=== PATIENT | female | born 1995 | race Caucasian/White ===

== ENCOUNTER 2023-06-21 21:08 | Inpatient (IN) | payer BC, SELFPAY ==
[2023-06-21 21:23] VITALS: BP 125/84; PULSE 98
[2023-06-21 22:14] LABS: Hematocrit 36.4 % (36.0-48.0); Hemoglobin 12.2 g/dL (12.0-16.0); Mean Corpuscular HGB Conc 33.5 g/dL (29.9-35.2); Mean Corpuscular Hemoglobin 30.4 pg (26.7-34.0); Mean Corpuscular Volume 90.8 fL (81.0-99.0); Mean Platelet Volume 11.6 fL (9.5-13.5); Platelet Count 189 10^3/uL (150-450); Red Blood Count 4.01 10^6/uL (4.20-5.40); Red Cell Distribution Width 14.2 % (11.0-15.0); White Blood Count 14.5 10^3/uL (4.0-11.0)
[2023-06-21 22:17] LABS: Bilirubin Urine NEGATIVE (NEGATIVE); Blood Urine SMALL (NEGATIVE); Clarity Urine CLEAR (CLEAR); Color Urine YELLOW (YELLOW); Glucose Urine UA NEGATIVE (NEGATIVE); Ketones Urine TRACE mg/dL (NEGATIVE); Leukocyte Esterase Urine TRACE (NEGATIVE); Nitrite Urine NEGATIVE (NEGATIVE); Protein Urine NEGATIVE (NEG/TRACE); Specific Gravity Urine 1.025 (1.005-1.025); Urobilinogen Urine 0.2 EU/dL (0.2-1.0)
[2023-06-21 22:22] LABS: Urine Microscopic Indicated YES
[2023-06-21 22:25] LABS: Bacteria Urine NONE SEEN #/HPF (NONE SEEN); Cast Seen? NONE SEEN #/LPF (NONE SEEN); Crystals Seen? None Seen #/HPF (None Seen); Mucus Urine NONE SEEN (NONE SEEN); RBC Urine 0-2 #/HPF (0-2); Squamous Epithelial Cell Urine FEW #/LPF (NONE/RARE); WBC Urine 0-2 #/HPF (NONE SEEN)
[2023-06-21 22:30] LABS: Amphetamine Screen Urine NEGATIVE (NEGATIVE); Barbiturates Screen Urine NEGATIVE (NEGATIVE); Benzodiazepines Screen Urine NEGATIVE (NEGATIVE); Buprenorphine Screen Urine NEGATIVE (NEGATIVE); Cannabinoid Screen Urine NEGATIVE (NEGATIVE); Cocaine Screen Urine NEGATIVE (NEGATIVE); Methadone Screen Urine NEGATIVE (NEGATIVE); Methamphetamines Screen Urine NEGATIVE (NEGATIVE); Opiate Screen Urine NEGATIVE (NEGATIVE); Oxycodone Screen Urine NEGATIVE (NEGATIVE); Phencyclidine Screen Urine NEGATIVE (NEGATIVE); Tricyclic Antidepressant Urine NEGATIVE (NEGATIVE)
[2023-06-21 23:00] VITALS: BP 116/68; PULSE 83; TEMP 35.6; TEMP 35.8
[2023-06-21] MEDS: LACTATED RINGER'S SOLUTION 1,000 ML 999 ML IV (23:27)
[2023-06-22] VITALS (81 sets, daily range): BP systolic 99–192; BP diastolic 51–109; PULSE 86–136; RESP 15–33; TEMP 35.8–37.1; O2SAT 89–99
[2023-06-22] MEDS: LACTATED RINGER'S SOLUTION 1,000 ML 999 ML IV (00:28)
[2023-06-22] MEDS: LIDOCAINE HCL 2% PF 100 MG/5 ML VIAL INJ (00:36)
[2023-06-22] MEDS: ROPIVACAINE HCL/PF 400 MG/200 ML PREMIX 10 MG EPIDURAL (00:42)
--- NOTE | 2023-06-22 02:35 | PM.OBHP ---
OB - H&P: HPI History of Present Illness Chief complaint: @41 WEEKS, CONTRACTIONS : 2 Para: 0 Gestational age based on last menstrual period: 40.3 History of Present Dating criteria: LMP confirmed by 1st trimester US care: good care Ultrasounds: normal 1st trimester US and normal mid trimester US complications comment: none Medical complications OB: none Labs Blood type: A (+) positive Rubella: immune RPR/VDLR: nonreactive GBS status: negative HBsAG: negative Review of Systems ROS Status of ROS: 10 or more systems reviewed and unremarkable except as noted in history and below [facility] Medical History (Updated 06/22/23 @ 02:47 by ROCK DUMONT APRN, MARIBETH) Anemia ?D64.9 - Anemia, unspecified (ICD-10) Family History (Updated 06/21/23 @ 22:16 by Tay Matthews) Aunt Family history of cancer Grandfather Family history of cancer Father Family history of hypertension Clotting disorder Grandmother Family history of stroke Social History (Updated 06/21/23 @ 22:20 by Tay Matthews) Within the past year, how often did you have a drink containing alcohol: never Within the past year, how often did you have six or more drinks on one occasion: never Score interpretation: A score less than 3 is consistent with normal alcohol consumption. Smoking status: Never smoker Non-prescribed substance use: denies use Highest level of school completed/degree received: Bachelor's degree Are you now , , , , never or living with a partner: In a typical week, how many times do you talk on the telephone with family, friends, or neighbors: 3 or more times per week How often do you get together with friends or relatives: 3 or more times per week How often do you attend confucianism or evangelical services: 4 or more times per year Do you belong to any clubs or organizations such as confucianism groups unions, fraternal or athletic groups, or school groups: no Total score: 3 Score interpretation: A score of greater than or equal to 2 indicates the lowest level of social isolation. Little interest or pleasure in doing things: not at all Feeling down, depressed, or hopeless: not at all Feel stressed/tense/nervous/anxious/difficulty sleeping: not at all Do you think of yourself as: straight/heterosexual Gender Identity: female Meds Home Medications and Allergies Home Medications Medication Instructions Recorded Confirmed Type ferrous sulfate 325 mg (65 mg mg PO 06/21/23 History iron) tablet,delayed release Allergies Allergy/AdvReac Type Severity Reaction Status Date / Time No Known Drug Allergies Allergy Verified 06/21/23 22:49 Exam Constitutional Vital Signs, click to edit/add: Last Vital Signs Temp 96.4 F L 06/22/23 01:44 Pulse 93 H 06/22/23 02:34 BP 107/57 06/22/23 02:34 Common normals: no apparent distress and oriented x3 General appearance: cooperative and comfortable Orientation/consciousness: Yes awake, Yes oriented to person, Yes oriented to place and Yes oriented to time HENMT Common normals: normocephalic Eye Common normals: EOMs intact bilaterally Neck & C-Spine Common normals: full ROM and no lymphadenopathy General: normal visual inspection Lymph Lymphatic: no lymphadenopathy noted Chest Common normals: inspection of chest normal Respiratory Common normals: normal respiratory effort Cardio Common normals: regular rate and regular rhythm Rate: regular rate Rhythm: regular rhythm GI Common normals: Normal to inspection, nondistended, normoactive bowel sounds present Inspection: normal to inspection Auscultation: normoactive bowel sounds Palpation: firm (gravid uterus ) Percussion: normal to percussion Common normals: external appearance normal Bladder/kidney exam: catheter in place Extremity Common normals: normal to inspection and full ROM Neuro Common normals: oriented x3 and moves all extremities Sensorium/orientation: awake, alert, oriented to person, oriented to place and oriented to time Speech: speech normal Psych Common normals: mental status grossly normal, thought process normal, cooperative, affect normal and speech normal Appearance: grossly normal and well kempt Attitude: calm Activity/motor behavior: appropriate eye contact Speech: normal speech Thought process: normal thought process Thought content: normal thought content Results Labs Labs: Short CBC 06/21/23 Range/Units 21:56 WBC 14.5 H (4.0-11.0) 10^3/uL Hgb 12.2 (12.0-16.0) g/dL Hct 36.4 (36.0-48.0) % Plt Count 189 (150-450) 10^3/uL Urine 06/21/23 Range/Units 21:15 Urine Color Yellow (YELLOW) Urine Clarity Clear (CLEAR) Urine pH 6.0 (5.0-9.0) Ur Specific [place] 1.025 (1.005-1.025) Urine Protein Negative (NEG/TRACE) mg/dL Urine Glucose (UA) Negative (NEGATIVE) mg/dL OB - A/P Assessment and Plan (1) Term : Plan admit to labor and delivery, routine labor orders Additional Plan Induction method: none (patient did want elective induction of labor , spontaneous labor onset )
--- NOTE | 2023-06-22 03:34 | PM.EN ---
Event Note Event Note: to room to assess patient after anesthesia leaves room. SVE /0 with bulging bag
--- NOTE | 2023-06-22 04:43 | PM.EN ---
Event Note Event Note: patient feeling increase in rectal pressure and states I feel like I could have a bowel movement. SVE thick anterior lip/100/0 encouraged position change to reduce cervical lip. Category 1 EFM tracing
[2023-06-22] MEDS: LACTATED RINGER'S SOLUTION 1,000 ML 125 ML IV ×2 (05:09→08:44)
[2023-06-22] MEDS: OXYTOCIN/0.9 % SODIUM CHLORIDE 10 UNITS/500 ML PLAST..BAG 6 UNIT IV (05:50)
--- NOTE | 2023-06-22 08:15 | PM.EN ---
Event Note Event Note: 0650 Dr Hanley called per this CNM and updated with report. He recommends patient continue to push, and vacuum is not ideal with the station, possible LGA and expulsatory effort. 0700 patient continues to push without expulsatory effort. Patient is tearful and states I'm so tired, I can't do this anymore, and I'm done. patient station is the same, and I do not feel good effort when she pushes. Head descends to +2 with pushing and then retracts back to +1 when contraction is done. Patient remains tearful. 751 discussion with patient and her regarding primary section and explanation of risk of vacuum at this time. Unknown position, possible LGA, risk of shoulder dystocia discussed. After all questions answered patient does agree to primary low transverse section. discussion with patient regarding pushing and effort. maternal exhaustion. Patient does not want to push any longer. head is retracting when pushing is complete. 0755 Category B primary section called. Dr Hanley notified and team called her unit RN.
[2023-06-22] MEDS: CITRIC ACID/SODIUM CITRATE 30 ML SOLUTION ORACIT SHOHL'S SOLN PO (08:44)
[2023-06-22] MEDS: FAMOTIDINE/PF 20 MG/2 ML VIAL IV (08:45)
[2023-06-22] MEDS: CEFAZOLIN SODIUM/DEXTROSE,ISO 1 GM/50 ML IV.SOLN IV ×2 (08:45→16:55)
--- NOTE | 2023-06-22 09:36 | W.PC.ACHO ---
Registration Status: ADM IN Primary Language: Preferred Language: Greenlandic Active Medications Generic Name Dose Route Start Last Admin Trade Name Charo PRN Reason Stop Dose Admin Carboprost Tromethamine 250 mcg 06/21/23 21:54 Carboprost Tromethamine 250 Mcg/Ml 1 Ml Vial IM 06/23/23 21:54 Q15M PRN Bleeding Diphenhydramine HCl 25 mg 06/21/23 23:21 Diphenhydramine Hcl 50 Mg/Ml (1ml) Vial IV 06/22/23 23:21 Q6H PRN Itching Ephedrine Sulfate 5 mg 06/21/23 23:21 Ephedrine Sulfate 50 Mg/Ml Vial IV 06/22/23 23:21 Q5M PRN Blood Pressure - Low Fentanyl Citrate 100 mcg 06/21/23 23:21 Fentanyl Citrate/Pf 100 Mcg/2 Ml Vial EPIDURAL ONCE PRN epidural Fentanyl Citrate 100 mcg 06/21/23 23:21 Fentanyl Citrate/Pf 100 Mcg/2 Ml Vial EPIDURAL ONCE PRN epidural Lactated Ringer's 1,000 mls @ 125 mls/hr 06/21/23 22:00 06/22/23 08:44 Lactated Ringers IV 125 mls/hr .Q8H NICCI Administration Ropivacaine/Sodium Chloride 400 mg in 200 mls @ 6 mls/hr 06/21/23 23:30 06/22/23 04:34 Naropin 0.2% 400 Mg/200 Ml Bag EPIDURAL 12 mls/hr Q24H NICCI Infusion Oxytocin/Sodium Chloride 10 units in 500 mls @ 6 mls/hr 06/22/23 05:45 06/22/23 07:45 Pitocin 10 Unit/500 Ml-Ns IV Infused CONT NICCI Infusion Protocol 2 MILLIUNIT/MIN Lactated Ringer's 1,000 mls @ 1,000 mls/hr 06/22/23 08:15 Lactated Ringers IV 06/22/23 10:14 .Q1H NICCI Lidocaine 5 ml 06/21/23 21:54 Lidocaine Viscous 2% 15 Ml Solution TOPICAL ONCE PRN Pain Lidocaine 1 ml 06/21/23 21:54 Lidocaine Hcl 1% 200 Mg/20 Ml Mdv INJ ONCE PRN Pain Lidocaine 5 ml 06/21/23 23:21 06/22/23 00:36 Lidocaine Hcl 2% Pf 100 Mg/5 Ml Vial INJ 06/22/23 23:21 5 ml Q1H PRN Administration epidural Methylergonovine Maleate 0.2 mg 06/21/23 21:54 Methylergonovine Maleate 0.2 Mg/Ml Ampule IM 06/23/23 21:54 ONCE PRN Uterine Contractility/Contract Methylergonovine Maleate 0.2 mg 06/21/23 21:54 Methylergonovine Maleate 0.2 Mg Tablet PO 06/23/23 21:54 Q4H PRN Uterine Contractility/Contract Misoprostol 600 mcg 06/21/23 21:54 Misoprostol 100 Mcg Tablet PO 06/23/23 21:54 ONCE PRN Uterine Bleeding Misoprostol 800 mcg 06/21/23 21:54 Misoprostol 100 Mcg Tablet SL 06/23/23 21:54 ONCE PRN Uterine Bleeding Misoprostol 1,000 mcg 06/21/23 21:54 Misoprostol 100 Mcg Tablet MA 06/23/23 21:54 ONCE PRN Uterine Bleeding Naloxone HCl 0.4 mg 06/21/23 23:21 Naloxone Hcl 0.4 Mg/Ml Vial IV 06/22/23 23:21 ONCE PRN respiratory depression Ondansetron HCl 4 mg 06/21/23 21:54 Ondansetron Pf 4 Mg/2 Ml Vial IV Q6H PRN Nausea And Vomiting Ondansetron HCl 4 mg 06/21/23 21:54 Ondansetron 4 Mg Rapdis Tablet SL Q6H PRN Nausea And Vomiting Oxytocin 10 unit 06/21/23 21:54 Oxytocin 10 Unit/Ml Vial IM 06/23/23 21:54 ONCE PRN Bleeding Diet Category Date Time Status NPO Diet Diet 06/22/23 08:05 Active IV Insertion/Site Date of IV Line Insertion [20g 06/21/23 left Wrist] IV Insertion Time [20g left 21:56 Wrist] Neurology Patient orientation (short person,place,time,situation list)
--- NOTE | 2023-06-22 09:55 | P.ON_ITS ---
Brief Operative Note Date of procedure: 06/22/23 Pre-op diagnosis: iup at 40+wks, active labor, failure to descend, maternal ex haustion Post-op diagnosis: same as pre-op Procedure: NAME OF PROCEDURE: [ section ] PROCEDURE: Patient was taken back to the Operating Room where she was given a spinal anesthesia with Duramorph without difficulty. She was prepped and draped in the normal sterile fashion. A Pfannenstiel skin incision was then made 2 cm above the symphysis pubis and carried down to underlying rectus fascia using a Bovie. The fascia was incised in the midline and extended laterally using Gastelum scissors. Two Anisha clamps were placed on the superior aspect of the fascia and dissected off the underlying rectus muscles. The same was performed on the inferior aspect as well. The muscles were then in the midline. Peritoneum was identified and entered bluntly. The peritoneum was then extended superiorly and inferiorly with good visualization of the bladder. The bladder blade was inserted. A low transverse incision was made on the patient's uterus and extended laterally digitally. The infant was then delivered atraumatically after the bladder blade was removed in the cephalic position. The cord was clamped and cut. Cord blood was obtained. The infant was handed off to awaiting team. The patient's placenta was spontaneously delivered. The uterus was then exteriorized. The uterus was cleared of all clots and debris. The bladder blade was reinserted. The patient's uterine incision was closed using #0 Vicryl in a running lock fashion. Excellent hemostasis was assured. The uterus was then returned to the patient's abdomen. The patient's abdomen was copiously irrigated using warm saline. Peritoneal gutters were cleared of all clots and debris. Again excellent hemostasis was assured. The patient's peritoneum was closed using 3-0 Vicryl in a running fashion. The patient's fascia was closed using #0 Vicryl in a running fashion. The patient's skin was closed using 4-0 Vicryl subcuticularly. The patient tolerated the procedure well. Sponge, lap, and needle counts were correct x2. The patient was taken to the Recovery Room in stable condition. Anesthesia: spinal Surgeon: Louis Hanley Quality Project Manager: ROCK DUMONT Estimated blood loss (mL): 575 Pathology: none sent Condition: stable Disposition: PACU
--- NOTE | 2023-06-22 09:56 | PM.OBPRCCS ---
Procedure Pre-op/Post-op diagnoses: Pre-Op/Post-Op Diagnoses Operation Date: 06/22/23 08:45 <No data on this case meets the specified criteria> Procedure: Procedures Operation Date: 06/22/23 08:45 Actual Procedure Side Surgeon p Not Applicable Louis Hanley DO Clean Up Worker: ROCK DUMONT Estimated blood loss (mL): 575 Disposition: floor Anesthesia type: Spinal
[2023-06-22] MEDS: LACTATED RINGER'S SOLUTION 1,000 ML 50 ML IV (09:59)
--- NOTE | 2023-06-22 10:21 | P.EN_ITS ---
Event Note Event Note: Corporate Compliance Officer Note: I first assisted Dr Hanley with primary low transverse section of viable baby boy. I assisted as directed by physician. I independently closed the SQ layer with 3-0 vicryl x4 sutures. I then independently closed the skin incision with 4-0 vicryl on a Dat Needle without difficulty. Hemostasis noted at completion. Patient tolerated procedure well.
[2023-06-22] MEDS: OXYTOCIN/0.9 % SODIUM CHLORIDE 20 UNITS/1,000 ML PLAST..BAG 125 UNIT IV ×2 (10:25)
[2023-06-22] MEDS: ACETAMINOPHEN 500 MG TABLET 1000 MG PO ×2 (15:00→21:01)
[2023-06-22] MEDS: GLYCERIN/WITCH HAZEL PADS 1 PAD TOPICAL (16:34)
[2023-06-22] MEDS: BENZOCAINE/MENTHOL 85 GRAM SPRAY BOTTLE 1 APPLIC TOPICAL (16:34)
[2023-06-22] MEDS: KETOROLAC TROMETHAMINE 30 MG/ML VIAL IVP (18:16)
[2023-06-22] MEDS: ENOXAPARIN SODIUM 40 MG/0.4 ML SYRINGE SUBQ (21:03)
[2023-06-23] MEDS: KETOROLAC TROMETHAMINE 30 MG/ML VIAL IVP ×3 (01:49→17:06)
[2023-06-23] MEDS: ACETAMINOPHEN 500 MG TABLET 1000 MG PO ×3 (03:45→22:05)
[2023-06-23 04:50] VITALS: BP 113/71
[2023-06-23 06:10] LABS: Basophils Absolute Auto 0.1 10^3/uL (0.0-0.1); Basophils Percent Auto 0.4 % (0.2-2.0); Eosinophils Absolute Auto 0.1 10^3/uL (0.0-0.7); Eosinophils Percent Auto 0.3 % (0.9-7.0); Hemoglobin 9.6 g/dL (12.0-16.0); Immature Granulocytes Abs Auto 0.08 10^3/uL (0.00-0.03); Immature Granulocytes Pct Auto 0.4 % (0.0-0.5); Mean Corpuscular HGB Conc 34.3 g/dL (29.9-35.2); Mean Corpuscular Hemoglobin 31.3 pg (26.7-34.0); Mean Corpuscular Volume 91.2 fL (81.0-99.0); Mean Platelet Volume 11.3 fL (9.5-13.5); Monocytes Absolute Auto 1.4 10^3/uL (0.3-0.8); Monocytes Percent Auto 7.2 % (1.7-12.0); Neutrophils Absolute Auto 16.2 10^3/uL (1.4-6.5); Neutrophils Percent Auto 81.7 % (43.0-75.0); Platelet Count 159 10^3/uL (150-450); Red Blood Count 3.07 10^6/uL (4.20-5.40); White Blood Count 19.8 10^3/uL (4.0-11.0)
--- NOTE | 2023-06-23 07:35 | W.PC.ACHO ---
Registration Status: ADM IN Primary Language: Preferred Language: Maltese Active Medications Generic Name Dose Route Start Last Admin Trade Name Freq PRN Reason Stop Dose Admin Acetaminophen 1,000 mg 06/22/23 15:40 06/23/23 03:45 Acetaminophen 500 Mg Tablet PO 1,000 mg Q6H PRN Administration Pain Al Hydroxide/Mg Hydroxide 2,400 mg 06/22/23 10:29 Magnesium Hydroxide 2,400 Mg/10 Ml Oral.Susp PO Q6H PRN Dyspepsia Benzocaine/Menthol 1 applic 06/22/23 16:08 06/22/23 16:34 Benzocaine/Menthol 85 Gram [place] Bottle TOPICAL 1 applic Q2H PRN Administration Pain Carboprost Tromethamine 250 mcg 06/21/23 21:54 Carboprost Tromethamine 250 Mcg/Ml 1 Ml Vial IM 06/23/23 10:00 Q15M PRN Bleeding Diphenhydramine HCl 25 mg 06/22/23 10:34 Diphenhydramine Hcl 50 Mg/Ml (1ml) Vial IV 06/23/23 10:35 Q6H PRN Itching Diphtheria/Pertussis/Tetanus Vacc 0.5 ml 06/24/23 09:00 Adacel Diph,Pertuss(Acell),Tet Vac/Pf 0.5 Ml Adult Syringe IM 06/24/23 09:01 .ONCE ONE Docusate Sodium 100 mg 06/23/23 09:00 Docusate Sodium 100 Mg Capsule PO BID NICCI Enoxaparin Sodium 40 mg 06/22/23 21:30 06/22/23 21:03 Enoxaparin Sodium 40 Mg/0.4 Ml Syringe SUBQ 40 mg Q24H NICCI Administration Lactated Ringer's 1,000 mls @ 125 mls/hr 06/22/23 10:30 Lactated Ringers IV .Q8H NICCI Ketorolac Tromethamine 30 mg 06/22/23 18:00 06/23/23 01:49 Ketorolac Tromethamine 30 Mg/Ml Vial IVP 06/24/23 18:01 30 mg Q8H NICCI Administration Measles/Mumps/Rubella Vaccine Live 0.5 ml 06/24/23 09:00 Measles,Mumps,Rubella Vacc/Pf 0.5 Ml Vial SQ 06/24/23 09:01 .ONCE ONE Methylergonovine Maleate 0.2 mg 06/21/23 21:54 Methylergonovine Maleate 0.2 Mg/Ml Ampule IM 06/23/23 10:00 ONCE PRN Uterine Contractility/Contract Methylergonovine Maleate 0.2 mg 06/21/23 21:54 Methylergonovine Maleate 0.2 Mg Tablet PO 06/23/23 10:00 Q4H PRN Uterine Contractility/Contract Misoprostol 600 mcg 06/21/23 21:54 Misoprostol 100 Mcg Tablet PO 06/23/23 10:00 ONCE PRN Uterine Bleeding Misoprostol 800 mcg 06/21/23 21:54 Misoprostol 100 Mcg Tablet SL 06/23/23 10:00 ONCE PRN Uterine Bleeding Misoprostol 1,000 mcg 06/21/23 21:54 Misoprostol 100 Mcg Tablet HI 06/23/23 10:00 ONCE PRN Uterine Bleeding Ondansetron HCl 4 mg 06/21/23 21:54 Ondansetron Pf 4 Mg/2 Ml Vial IV Q6H PRN Nausea And Vomiting Ondansetron HCl 4 mg 06/21/23 21:54 Ondansetron 4 Mg Rapdis Tablet SL Q6H PRN Nausea And Vomiting Oxycodone/Acetaminophen 1 tab 06/22/23 10:29 Oxycodone Hcl/Acetaminophen 5mg/325mg PO Q4H PRN Pain Scale 4-6 Oxycodone/Acetaminophen 2 tab 06/22/23 10:29 Oxycodone Hcl/Acetaminophen 5mg/325mg PO Q4H PRN Pain Scale 7-10 Senna 17.2 mg 06/22/23 20:00 Sennosides 8.6 Mg Tablet PO QHS PRN Constipation Simethicone 80 mg 06/22/23 10:29 Simethicone 80 Mg Tab.Chew PO QID PRN Abdominal Distention Witch Meeta/Glycerin 1 pad 06/22/23 16:08 06/22/23 16:34 Glycerin/Witch Meeta Pads TOPICAL 1 pad Q2H PRN Administration Pain Diet Category Date Time Status Regular Consistency Diet Diet 06/22/23 10:30 Active Respiratory Lung sounds [Throughout] clear Lung sounds [Throughout] clear Lung sounds [Throughout] clear Lung sounds [Throughout] clear Lung sounds [Throughout] clear Lung sounds [Throughout] clear Pulse Oximetry 94 Pulse Oximetry 94 Pulse Oximetry 94 Pulse Oximetry 94 Pulse Oximetry 94 Pulse Oximetry 94 Pulse Oximetry 94 Pulse Oximetry 94 Pulse Oximetry 94 Pulse Oximetry 93 Pulse Oximetry 89 Pulse Oximetry 90 Pulse Oximetry 92 Pulse Oximetry 96 Pulse Oximetry 98 Pulse Oximetry 99 Pulse Oximetry 98 Pulse Oximetry 98 Pulse Oximetry 98 Pulse Oximetry 98 Pulse Oximetry 98 Pulse Oximetry 98 Pulse Oximetry 97 Pulse Oximetry 96 Pulse Oximetry 99 Oxygen Delivery Method Room Air Oxygen Delivery Method Room Air Oxygen Delivery Method Room Air Oxygen Delivery Method Room Air Oxygen Delivery Method Room Air Oxygen Delivery Method Room Air Oxygen Delivery Method Room Air Oxygen Delivery Method Room Air Oxygen Delivery Method Room Air Oxygen Delivery Method Room Air Oxygen Delivery Method Room Air Oxygen Delivery Method Room Air Oxygen Delivery Method Room Air Oxygen Delivery Method Room Air Oxygen Delivery Method Room Air Bowels Bowel Pattern No Bowel Movement Bowel Pattern No Bowel Movement Bowel Pattern No Bowel Movement Bowel Pattern No Bowel Movement Bowel Pattern No Bowel Movement Bowel Pattern No Bowel Movement Bowel Pattern No Bowel Movement Bowel Pattern No Bowel Movement Bowel Pattern No Bowel Movement
[2023-06-23 08:42] VITALS: BP 123/74; RESP 16
[2023-06-23] MEDS: DOCUSATE SODIUM 100 MG CAPSULE PO ×2 (08:42→22:05)
[2023-06-23 16:07] VITALS: O2SAT 100
[2023-06-23 16:08] VITALS: BP 125/75; O2SAT 96
[2023-06-23 16:16] VITALS: BP 125/75; PULSE 107; RESP 16; TEMP 36.7; O2SAT 96
[2023-06-23 17:00] VITALS: RESP 16
--- NOTE | 2023-06-23 20:33 | PM.OBPN ---
OB - PN: Subj Subjective Patient comments: no complaints and pain well controlled [place] status: doing well Exam Constitutional Vital Signs, click to edit/add: Last Vital Signs Temp 98.0 F 06/23/23 16:16 Pulse 107 H 06/23/23 16:16 Resp 16 06/23/23 17:00 BP 125/75 06/23/23 16:16 Pulse Ox 96 06/23/23 16:16 O2 Del Method Room Air 06/23/23 17:00 Documenting provider has reviewed patient's vital signs: yes Common normals: no apparent distress Respiratory Common normals: normal respiratory effort and clear to auscultation bilaterally Cardio Common normals: regular rate and regular rhythm GI Common normals: Normal to inspection, nondistended, normoactive bowel sounds present Extremity Common normals: no calf tenderness Results Labs Labs: Short CBC 06/23/23 Range/Units 06:03 WBC 19.8 H (4.0-11.0) 10^3/uL Hgb 9.6 L (12.0-16.0) g/dL Hct 28.0 L (36.0-48.0) % Plt Count 159 (150-450) 10^3/uL Urinary Catheter Management Urinary Catheter Management Urethral: Cath placed during this visit: no OB - PN: A/P Assessment and Plan (1) Term : Plan - day: 1 Plan: routine postop care Time Spent with Patient Time: Total time spent is greater than 50% in coordination of care (as documented) at patient's floor/unit and/or counseling patient: Total time spent with greater than 50% in coordination of care (as documented) at patient's floor/unit and/or counseling patient: less than 15 minutes
[2023-06-23] MEDS: ENOXAPARIN SODIUM 40 MG/0.4 ML SYRINGE SUBQ (22:05)
[2023-06-24 00:35] VITALS: BP 120/72; RESP 18; TEMP 36.6
[2023-06-24] MEDS: IBUPROFEN 400 MG TABLET 800 MG PO (03:26)
[2023-06-24] MEDS: ACETAMINOPHEN 500 MG TABLET 1000 MG PO ×2 (06:30→13:30)
--- NOTE | 2023-06-24 07:13 | W.PC.ACHO ---
Registration Status: ADM IN Primary Language: Preferred Language: Belarusian Active Medications Generic Name Dose Route Start Last Admin Trade Name Freq PRN Reason Stop Dose Admin Acetaminophen 1,000 mg 06/22/23 15:40 06/24/23 06:30 Acetaminophen 500 Mg Tablet PO 1,000 mg Q6H PRN Administration Pain Al Hydroxide/Mg Hydroxide 2,400 mg 06/22/23 10:29 Magnesium Hydroxide 2,400 Mg/10 Ml Oral.Susp PO Q6H PRN Dyspepsia Benzocaine/Menthol 1 applic 06/22/23 16:08 06/22/23 16:34 Benzocaine/Menthol 85 Gram [place] Bottle TOPICAL 1 applic Q2H PRN Administration Pain Diphtheria/Pertussis/Tetanus Vacc 0.5 ml 06/24/23 09:00 Adacel Diph,Pertuss(Acell),Tet Vac/Pf 0.5 Ml Adult Syringe IM 06/24/23 09:01 .ONCE ONE Docusate Sodium 100 mg 06/23/23 09:00 06/23/23 22:05 Docusate Sodium 100 Mg Capsule PO 100 mg BID NICCI Administration Enoxaparin Sodium 40 mg 06/22/23 21:30 06/23/23 22:05 Enoxaparin Sodium 40 Mg/0.4 Ml Syringe SUBQ 40 mg Q24H NICCI Administration Lactated Ringer's 1,000 mls @ 125 mls/hr 06/22/23 10:30 Lactated Ringers IV .Q8H NICCI Ibuprofen 800 mg 06/24/23 02:56 06/24/23 03:26 Ibuprofen 400 Mg Tablet PO 800 mg Q8H PRN Administration Pain Scale 1-3 Ketorolac Tromethamine 30 mg 06/22/23 18:00 06/24/23 02:55 Ketorolac Tromethamine 30 Mg/Ml Vial IVP 06/24/23 18:01 Not Given Q8H NICCI Measles/Mumps/Rubella Vaccine Live 0.5 ml 06/24/23 09:00 Measles,Mumps,Rubella Vacc/Pf 0.5 Ml Vial SQ 06/24/23 09:01 .ONCE ONE Ondansetron HCl 4 mg 06/21/23 21:54 Ondansetron Pf 4 Mg/2 Ml Vial IV Q6H PRN Nausea And Vomiting Ondansetron HCl 4 mg 06/21/23 21:54 Ondansetron 4 Mg Rapdis Tablet SL Q6H PRN Nausea And Vomiting Oxycodone/Acetaminophen 1 tab 06/22/23 10:29 Oxycodone Hcl/Acetaminophen 5mg/325mg PO Q4H PRN Pain Scale 4-6 Oxycodone/Acetaminophen 2 tab 06/22/23 10:29 Oxycodone Hcl/Acetaminophen 5mg/325mg PO Q4H PRN Pain Scale 7-10 Senna 17.2 mg 06/22/23 20:00 Sennosides 8.6 Mg Tablet PO QHS PRN Constipation Simethicone 80 mg 06/22/23 10:29 Simethicone 80 Mg Tab.Chew PO QID PRN Abdominal Distention Witch Meeta/Glycerin 1 pad 06/22/23 16:08 06/22/23 16:34 Glycerin/Witch Meeta Pads TOPICAL 1 pad Q2H PRN Administration Pain Respiratory Pulse Oximetry 96 Pulse Oximetry 96 Pulse Oximetry 100 Oxygen Delivery Method Room Air Oxygen Delivery Method Room Air Oxygen Delivery Method Room Air Cardiology Heart Sounds Strong,Regular Bowels Bowel Pattern No Bowel Movement Renal Bladder Pattern Continent
--- NOTE | 2023-06-24 07:54 | PM.OBPN ---
OB - PN: Subj Subjective Patient comments: no complaints, tolerating diet and flatus present status: doing well and well feeding status: exclusively Exam Constitutional Vital Signs, click to edit/add: Last Vital Signs Temp 97.8 F 06/24/23 00:35 Pulse 107 H 06/23/23 16:16 Resp 18 06/24/23 00:35 BP 120/72 06/24/23 00:35 Pulse Ox 96 06/23/23 16:16 O2 Del Method Room Air 06/24/23 00:35 Common normals: no apparent distress HENMT Common normals: normocephalic Eye Common normals: EOMs intact bilaterally General eye: normal appearance of both eyes Neck & C-Spine Common normals: full ROM General: normal visual inspection Lymph Lymphatic: no lymphadenopathy noted Chest Common normals: inspection of chest normal Respiratory Common normals: normal respiratory effort, no retractions, no use of accessory muscles and clear to auscultation bilaterally Cardio Common normals: no JVD, regular rate and regular rhythm Rate: regular rate Rhythm: regular rhythm GI Common normals: Normal to inspection, nondistended, normoactive bowel sounds present Palpation: soft Common normals: no CVA tenderness Back & Pelvis Common normals: no CVA tenderness Extremity Common normals: normal to inspection and full ROM Neuro Common normals: oriented x3 Sensorium/orientation: awake, alert, oriented to person, oriented to place and oriented to time Psych Common normals: mental status grossly normal Urinary Catheter Management Urinary Catheter Management Urethral: Cath placed during this visit: no OB - PN: A/P Assessment and Plan (1) Term : Plan - day: 2 Plan: discharge home Time Spent with Patient Time: Total time spent is greater than 50% in coordination of care (as documented) at patient's floor/unit and/or counseling patient: Total time spent with greater than 50% in coordination of care (as documented) at patient's floor/unit and/or counseling patient: less than 15 minutes
[2023-06-24] MEDS: DOCUSATE SODIUM 100 MG CAPSULE PO (08:11)
[2023-06-24 08:17] VITALS: BP 120/71; PULSE 91; RESP 16; TEMP 36.3
--- NOTE | 2023-06-24 13:01 | W.PC.ACHO ---
Registration Status: ADM IN Primary Language: Preferred Language: Divehi Active Medications Generic Name Dose Route Start Last Admin Trade Name Freq PRN Reason Stop Dose Admin Acetaminophen 1,000 mg 06/22/23 15:40 06/24/23 06:30 Acetaminophen 500 Mg Tablet PO 1,000 mg Q6H PRN Administration Pain Al Hydroxide/Mg Hydroxide 2,400 mg 06/22/23 10:29 Magnesium Hydroxide 2,400 Mg/10 Ml Oral.Susp PO Q6H PRN Dyspepsia Benzocaine/Menthol 1 applic 06/22/23 16:08 06/22/23 16:34 Benzocaine/Menthol 85 Gram [place] Bottle TOPICAL 1 applic Q2H PRN Administration Pain Docusate Sodium 100 mg 06/23/23 09:00 06/24/23 08:11 Docusate Sodium 100 Mg Capsule PO 100 mg BID NICCI Administration Enoxaparin Sodium 40 mg 06/22/23 21:30 06/23/23 22:05 Enoxaparin Sodium 40 Mg/0.4 Ml Syringe SUBQ 40 mg Q24H NICCI Administration Lactated Ringer's 1,000 mls @ 125 mls/hr 06/22/23 10:30 Lactated Ringers IV .Q8H NICCI Ibuprofen 800 mg 06/24/23 02:56 06/24/23 03:26 Ibuprofen 400 Mg Tablet PO 800 mg Q8H PRN Administration Pain Scale 1-3 Ketorolac Tromethamine 30 mg 06/22/23 18:00 06/24/23 02:55 Ketorolac Tromethamine 30 Mg/Ml Vial IVP 06/24/23 18:01 Not Given Q8H [facility] Ondansetron HCl 4 mg 06/21/23 21:54 Ondansetron Pf 4 Mg/2 Ml Vial IV Q6H PRN Nausea And Vomiting Ondansetron HCl 4 mg 06/21/23 21:54 Ondansetron 4 Mg Rapdis Tablet SL Q6H PRN Nausea And Vomiting Oxycodone/Acetaminophen 1 tab 06/22/23 10:29 Oxycodone Hcl/Acetaminophen 5mg/325mg PO Q4H PRN Pain Scale 4-6 Oxycodone/Acetaminophen 2 tab 06/22/23 10:29 Oxycodone Hcl/Acetaminophen 5mg/325mg PO Q4H PRN Pain Scale 7-10 Senna 17.2 mg 06/22/23 20:00 Sennosides 8.6 Mg Tablet PO QHS PRN Constipation Simethicone 80 mg 06/22/23 10:29 Simethicone 80 Mg Tab.Chew PO QID PRN Abdominal Distention Witch Meeta/Glycerin 1 pad 06/22/23 16:08 06/22/23 16:34 Glycerin/Witch Meeta Pads TOPICAL 1 pad Q2H PRN Administration Pain Respiratory Pulse Oximetry 96 Pulse Oximetry 96 Pulse Oximetry 100 Oxygen Delivery Method Room Air Oxygen Delivery Method Room Air Oxygen Delivery Method Room Air Cardiology Heart Sounds Strong,Regular Bowels Bowel Pattern No Bowel Movement Renal Bladder Pattern Continent
--- NOTE | 2023-06-24 16:21 | PC.NURSE ---
1613 Patient assisted out to car with and without incident. in car seat,secured in car safely.
--- NOTE | 2023-07-21 | DS_ITS ---
DISCHARGE DATE: 07/21/2023 PRIMARY DIAGNOSES: 1. Intrauterine at 40+ weeks. 2. Active labor. 3. Failure to descend. 4. Maternal exhaustion. PROCEDURE: section. HOSPITAL COURSE: As expected. Please see chart for full details. LABORATORY DATA: Please see chart. COMPLICATIONS: None. DISCHARGE CONDITION: Stable. CONSULTATION: Anesthesia. DISCHARGE INSTRUCTIONS: 1. Diet: Regular. 2. Medications: a. Percocet 5/325 one to two p.o. every 4-6 hours p.r.n. pain. b. Motrin 800 one p.o. every 8 hours p.r.n. pain. 3. Followup in one week. Restrictions: Pelvic rest for 6 weeks. No heavy lifting. May drive when pain free and no longer on narcotics. MTDD
== END 2023-06-24 16:15 | disposition home or self-care (01) | DRG 788 ==
PROVIDERS: Obstetrics & Gynecology; Admitting Provider Midwife; Visit Provider Midwife
PROC: 10D00Z1 Extraction of Products of Conception, Low, Open Approach (ICD-10-PCS; CPT 59514; principal; 2023-06-22 08:45)
DX: O32.4XX0 Maternal care for high head at term, not applicable or unspecified (principal); O75.81 Maternal exhaustion complicating labor and delivery; Z3A.40 40 weeks gestation of pregnancy; Z37.0 Single live birth
CPT/HCPCS: 36415; 51702; 59050; 80307; 81001; 85025; 85027; 86850; 86900; 86901; 96365; 96366; 96372; 96375; 96376; J0690; J1650; J1885; J2250; J2274; J2590; J2704; J2795; J3010

== ENCOUNTER 2023-06-27 08:38 | Outpatient (OUT) | payer BC, SELFPAY ==
--- NOTE | 2023-06-27 15:06 | PC.NURSE ---
Jonelle, 5 day old Yariel and martin arrive for follow up visit. Jonelle reports feeling well, Taking Motrin and occ Tylenol for incisional discomfort. Denies other symptoms or concerns except with . States wasn't great in the hospital, and once at home really just went downhill On day 3 he just wanted to nurse all the time, my nipples were red and bleeding and I wasn't sure he was getting anything . Reviewed timeline of typical milk transition and expected outputs for baby. Baby was behind 1 wet and stool for each day of life but doing well. Mom opted to give 1 oz formula after each effort at the breast. Few latches at right breast and mostly shallow latches on Left causing nipple damage. Jonelle's VVS and Assessment WNL. Incision clean and without drainage. no complaints. Yariel's VVS and assessment WNL. Baby to breast on right side. Mom taught to position better for asymmetrical latch. Baby responds by latching and feeding for 10 minutes. Limited swallows noted. Baby to left breast using improved technique and latches more asymmetrical and deeper. Audible swallows noted in bursts and pauses. Remains latched for 20 min. Mom reports dull soreness with feed no new or sharp pain felt. Nipple round when baby released latch. Discussed ways to increase supply, will pump with 21mm flange (smallest she has at this time) will order size 19mm flanges for better fit, and pump after each feed. Returning any pumped milk into baby and decrease use of formula as a able. Aware of triple feed and may feel overwhelmed at times. Encouraged to care for self and rest as needs. Nipple care reviewed and aware of use of Soothies, shells, tea bags and lanolin for healing. Good support noted and will return to 07/02/2023 for further support. leaves ambulatory with no further questions.
[2023-06-27 15:09] VITALS: BP 115/78; PULSE 102; RESP 20; TEMP 36.6; O2SAT 96
== END 2023-06-27 13:45 | disposition home or self-care (01) ==
PROVIDERS: Visit Provider Midwife
DX: Z39.2 Encounter for routine postpartum follow-up (principal)

== ENCOUNTER 2024-09-13 05:25 | Inpatient (IN) | payer BC, SELFPAY ==
[2024-09-13] VITALS (42 sets, daily range): BP systolic 63–126; BP diastolic 38–76; PULSE 78–121; TEMP 36.1–36.6; O2SAT 97–100
[2024-09-13] MEDS: LACTATED RINGER'S SOLUTION 1,000 ML 50 ML IV ×4 (05:56→08:11)
[2024-09-13] MEDS: METOCLOPRAMIDE HCL 10 MG/2 ML VIAL IVP (06:40)
[2024-09-13] MEDS: FAMOTIDINE/PF 20 MG/2 ML VIAL IV (06:40)
[2024-09-13] MEDS: CITRIC ACID/SODIUM CITRATE 30 ML SOLUTION ORACIT SHOHL'S SOLN PO (06:40)
[2024-09-13] MEDS: LACTATED RINGER'S SOLUTION 1,000 ML 125 ML IV ×2 (06:45→12:36)
[2024-09-13 06:49] LABS: Basophils Absolute Auto 0.1 10^3/uL (0.0-0.1); Basophils Percent Auto 0.6 % (0.2-2.0); Eosinophils Absolute Auto 0.1 10^3/uL (0.0-0.7); Eosinophils Percent Auto 0.8 % (0.9-7.0); Hematocrit 33.2 % (36.0-48.0); Hemoglobin 10.9 g/dL (12.0-16.0); Immature Granulocytes Abs Auto 0.04 10^3/uL (0.00-0.03); Immature Granulocytes Pct Auto 0.5 % (0.0-0.5); Lymphocytes Absolute Auto 2.2 10^3/uL (1.2-3.8); Lymphocytes Percent Auto 26.2 % (20.5-60.0); Mean Corpuscular HGB Conc 32.8 g/dL (29.9-35.2); Mean Corpuscular Hemoglobin 27.8 pg (26.7-34.0); Mean Corpuscular Volume 84.7 fL (81.0-99.0); Monocytes Absolute Auto 0.8 10^3/uL (0.3-0.8); Monocytes Percent Auto 9.2 % (1.7-12.0); Neutrophils Absolute Auto 5.3 10^3/uL (1.4-6.5); Neutrophils Percent Auto 62.7 % (43.0-75.0); Platelet Count 172 10^3/uL (150-450); Red Blood Count 3.92 10^6/uL (4.20-5.40); Red Cell Distribution Width 14.1 % (11.0-15.0); White Blood Count 8.4 10^3/uL (4.0-11.0)
[2024-09-13] MEDS: CEFAZOLIN SODIUM/DEXTROSE,ISO 2 GM/50 ML PIGGYBACK IV ×2 (07:17→14:31)
[2024-09-13 07:39] LABS: Amphetamine Screen Urine NEGATIVE (NEGATIVE); Barbiturates Screen Urine NEGATIVE (NEGATIVE); Benzodiazepines Screen Urine NEGATIVE (NEGATIVE); Buprenorphine Screen Urine NEGATIVE (NEGATIVE); Cannabinoid Screen Urine NEGATIVE (NEGATIVE); Cocaine Screen Urine NEGATIVE (NEGATIVE); Methadone Screen Urine NEGATIVE (NEGATIVE); Methamphetamines Screen Urine NEGATIVE (NEGATIVE); Opiate Screen Urine NEGATIVE (NEGATIVE); Oxycodone Screen Urine NEGATIVE (NEGATIVE); Phencyclidine Screen Urine NEGATIVE (NEGATIVE); Tricyclic Antidepressant Urine NEGATIVE (NEGATIVE)
--- NOTE | 2024-09-13 08:32 | P.ON_ITS ---
Brief Operative Note Date of procedure: 09/13/24 Pre-op diagnosis general: iup at 39wks, repeat c/s Post-op diagnosis: same as pre-op Procedure: NAME OF PROCEDURE: [ section ] PROCEDURE: Patient was taken back to the Operating Room where she was given a spinal anesthesia with Duramorph without difficulty. She was prepped and draped in the normal sterile fashion. A Pfannenstiel skin incision was then made 2 cm above the symphysis pubis and carried down to underlying rectus fascia using a Bovie. The fascia was incised in the midline and extended laterally using Gastelum scissors. Two Anisha clamps were placed on the superior aspect of the fascia and dissected off the underlying rectus muscles. The same was performed on the inferior aspect as well. The muscles were then in the midline. Peritoneum was identified and entered bluntly. The peritoneum was then extended superiorly and inferiorly with good visualization of the bladder. The bladder blade was inserted. A low transverse incision was made on the patient's uterus and extended laterally digitally. The infant was then delivered atraumatically after the bladder blade was removed in the cephalic position. The cord was clamped and cut. Cord blood was obtained. The was handed off to awaiting team. The patient's placenta was spontaneously delivered. The uterus was then exteriorized. The uterus was cleared of all clots and debris. The bl adder blade was reinserted. The patient's uterine incision was closed using #0 Vicryl in a running lock fashion. Excellent hemostasis was assured. The uterus was then returned to the patient's abdomen. The patient's abdomen was copiously irrigated using warm saline. Peritoneal gutters were cleared of all clots and debris. Again excellent hemostasis was assured. The patient's peritoneum was closed using 3-0 Vicryl in a running fashion. The patient's fascia was closed using #0 Vicryl in a running fashion. The patient's skin was closed using 4-0 Vicryl subcuticularly. The patient tolerated the procedure well. Sponge, lap, and needle counts were correct x2. The patient was taken to the Recovery Room in stable condition. Anesthesia: spinal Surgeon: Louis Hanley Automatic Glove Former: ROCK DUMONT Estimated blood loss (mL): 575 Pathology: none sent Condition: stable Disposition: floor Urinary Catheter Management Urinary Catheter Management Urethral: Cath placed during this visit: no
--- NOTE | 2024-09-13 08:34 | P.OBPRC_ITS ---
Procedure Pre-op/Post-op diagnoses: Pre-Op/Post-Op Diagnoses Operation Date: 09/13/24 07:30 <No data on this case meets the specified criteria> Procedure: Procedures Operation Date: 09/13/24 07:30 Actual Procedure Side Surgeon p Repeat Not Applicable Louis Hanley DO Video Production Coordinator: ROCK DUMONT Estimated blood loss (mL): 575 Disposition: PACU Anesthesia type: Spinal
--- NOTE | 2024-09-13 09:05 | P.EN_ITS ---
Event Note Event Note: Polysomnography Technologist Note: I first assisted Dr Hanley with repeat low transverse section. I assisted as directed by physician. I independently closed the skin incision with 3-0 vicryl on a Dat needle. Hemostasis noted at the completion of the case. Patient tolerated procedure well.
[2024-09-13] MEDS: OXYTOCIN/0.9 % SODIUM CHLORIDE 20 UNITS/1,000 ML PLAST..BAG 125 UNIT IV (09:30)
--- NOTE | 2024-09-13 09:35 | PC.NURSE ---
0924 last set of vitals were lower than when recovery started patient states she feels neema dizzy. Put bed in trendelenburg slightly Updated Fern QUILES about blood pressure. Fern QUILES updated anesthesia , anesthesia entering room when this appeals writer left to attend to blood pressure.
[2024-09-13] MEDS: LACTATED RINGER'S SOLUTION 1,000 ML 1000 ML IV (09:45)
--- NOTE | 2024-09-13 10:01 | PC.NURSE ---
This junior underwriter went back at 0938 tto check on patient and anesthesia had given meds to help elevate blood pressure. Patient also receiving a bolus of fluids.
[2024-09-13] MEDS: KETOROLAC TROMETHAMINE 30 MG/ML VIAL IVP ×2 (14:30→21:06)
[2024-09-13] MEDS: ACETAMINOPHEN 500 MG TABLET 1000 MG PO ×2 (15:59→23:40)
[2024-09-13] MEDS: ENOXAPARIN SODIUM 40 MG/0.4 ML SYRINGE SUBQ (21:09)
[2024-09-14] VITALS (21 sets, daily range): BP systolic 111–126; BP diastolic 62–80; PULSE 84–98; TEMP 36–36.8; O2SAT 100
[2024-09-14] MEDS: KETOROLAC TROMETHAMINE 30 MG/ML VIAL IVP ×2 (05:11→19:43)
[2024-09-14 06:32] LABS: Basophils Percent Auto 0.3 % (0.2-2.0); Eosinophils Percent Auto 0.1 % (0.9-7.0); Immature Granulocytes Abs Auto 0.07 10^3/uL (0.00-0.03); Immature Granulocytes Pct Auto 0.4 % (0.0-0.5); Lymphocytes Absolute Auto 2.5 10^3/uL (1.2-3.8); Lymphocytes Percent Auto 15.8 % (20.5-60.0); Mean Corpuscular HGB Conc 33.2 g/dL (29.9-35.2); Mean Corpuscular Hemoglobin 28.3 pg (26.7-34.0); Mean Corpuscular Volume 85.2 fL (81.0-99.0); Mean Platelet Volume 11.5 fL (9.5-13.5); Monocytes Absolute Auto 1.1 10^3/uL (0.3-0.8); Neutrophils Absolute Auto 12.2 10^3/uL (1.4-6.5); Neutrophils Percent Auto 76.4 % (43.0-75.0); Platelet Count 152 10^3/uL (150-450); Red Blood Count 2.37 10^6/uL (4.20-5.40); Red Cell Distribution Width 14.1 % (11.0-15.0); White Blood Count 15.9 10^3/uL (4.0-11.0)
[2024-09-14 06:41] LABS: Hematocrit 20.2 % (36.0-48.0); Hemoglobin 6.7 g/dL (12.0-16.0)
[2024-09-14] MEDS: ACETAMINOPHEN 500 MG TABLET 1000 MG PO ×2 (08:16→16:32)
[2024-09-14] MEDS: DOCUSATE SODIUM 100 MG CAPSULE PO ×2 (08:17→21:07)
--- NOTE | 2024-09-14 08:59 | PM.OBPN ---
OB - PN: Subj Subjective Patient comments: other (c/o headache this morning ) status: doing well and other (formula from syringe and working on latching ) Exam Constitutional Vital Signs, click to edit/add: Last Vital Signs Temp 97.3 F L 09/14/24 08:43 Pulse 98 H 09/14/24 08:43 Resp 16 09/14/24 08:43 BP 126/80 09/14/24 08:43 Pulse Ox 100 09/13/24 10:40 O2 Del Method Room Air 09/14/24 05:10 Documenting provider has reviewed patient's vital signs: yes Common normals: no apparent distress, average body habitus, oriented x3, no limitations, healthy appearing, alert and well nourished General appearance: cooperative and comfortable Orientation/consciousness: Yes awake, Yes oriented to person, Yes oriented to place and Yes oriented to time HENMT Common normals: normocephalic Eye Common normals: EOMs intact bilaterally General eye: normal appearance of both eyes Neck & C-Spine Common normals: full ROM General: normal visual inspection Lymph Lymphatic: no lymphadenopathy noted Chest Common normals: inspection of chest normal Respiratory Common normals: normal respiratory effort, no retractions, no use of accessory muscles, clear to auscultation bilaterally and percussion normal Effort & inspection: able to speak in complete sentences Auscultation: clear to auscultation bilaterally Cardio Common normals: regular rate and regular rhythm Rate: regular rate Rhythm: regular rhythm GI Common normals: Normal to inspection, nondistended, normoactive bowel sounds present Inspection: normal to inspection Auscultation: normoactive bowel sounds Palpation: soft Common normals: no CVA tenderness Back & Pelvis Common normals: no CVA tenderness Extremity Common normals: normal to inspection Neuro Common normals: oriented x3 Sensorium/orientation: awake, alert, oriented to person, oriented to place and oriented to time Speech: speech normal Psych Psychiatry clinicians, please identify where your Mental Status Exam is documented: Mental Status Exam documented in the separate MSE Common normals: mental status grossly normal, thought process normal, cooperative, affect normal, speech normal, activity/motor behavior normal, denies hallucinations, denies homicidal ideation and denies suicidal ideation Appearance: grossly normal Attitude: calm Results Labs Labs: Short CBC 09/14/24 Range/Units 06:17 WBC 15.9 H (4.0-11.0) 10^3/uL Hgb 6.7 L* D (12.0-16.0) g/dL Hct 20.2 L* (36.0-48.0) % Plt Count 152 (150-450) 10^3/uL Urinary Catheter Management Urinary Catheter Management Urethral: Cath placed during this visit: yes, but has since been removed by the nurse Urethral indwelling: No Insertion date: 09/13/24 Insertion time: 07:40 Removal date: 09/13/24 Removal time: 21:15 OB - PN: A/P Plan - day: 1 Plan: routine postop care Comment: patient has critical lab value for Hgb this morning. Admitting Hgb was 10.9 and this morning it was 6.7. Order placed for 2 units PRBCs. Patient c/o headache but no other symptoms. denies dizziness, weakness. Patient ambulates to the bathroom independently and walking around in the room without difficulty. Time Spent with Patient Time: Total time spent is greater than 50% in coordination of care (as documented) at patient's floor/unit and/or counseling patient: Total time spent with greater than 50% in coordination of care (as documented) at patient's floor/unit and/or counseling patient: less than 15 minutes
[2024-09-14] MEDS: 0.9 % SODIUM CHLORIDE 250 ML 10 ML IV (11:25)
[2024-09-14] MEDS: IBUPROFEN 400 MG TABLET 800 MG PO (11:34)
--- NOTE | 2024-09-14 11:50 | PC.NURSE ---
1000 explained electric breast pump to pt who pumps for 15 minutes to obtain 1.5 ml colostrum
--- NOTE | 2024-09-14 11:53 | PC.NURSE ---
0730 Explained blood transfusion to pt who denies dizziness or palpitations, c/o headache and appears pale
--- NOTE | 2024-09-14 14:18 | PC.NURSE ---
c/o throbbing pain to rt shoulder/neck since showering, states had BM lying flat in bed, warm pack applied
[2024-09-14] MEDS: SIMETHICONE 80 MG TAB.CHEW PO (14:47)
--- NOTE | 2024-09-14 14:55 | PC.NURSE ---
Using warmpack to rt neck with some relief, states will try to sleep, report given
--- NOTE | 2024-09-14 14:57 | PC.NURSE ---
steristrips dry and intact
--- NOTE | 2024-09-14 15:04 | W.PC.ACHO ---
Registration Status: ADM IN Primary Language: Kyrgyz Preferred Language: Kyrgyz 1445- Report received from Aldair QUILES at bedside. Care assumed by this RN. Active Medications Generic Name Dose Route Start Last Admin Trade Name Freq PRN Reason Stop Dose Admin Acetaminophen 1,000 mg 09/13/24 16:00 09/14/24 08:16 Acetaminophen 500 Mg Tablet PO 09/15/24 09:16 1,000 mg Q8H NICCI Administration Al Hydroxide/Mg Hydroxide 2,400 mg 09/13/24 09:11 Magnesium Hydroxide 2,400 Mg/10 Ml Oral.Susp PO Q6H PRN Dyspepsia Diphtheria/Pertussis/Tetanus Vacc 0.5 ml 09/15/24 09:00 Adacel Diph,Pertuss(Acell),Tet Vac/Pf 0.5 Ml Adult Syringe IM 09/15/24 09:01 .ONCE ONE Docusate Sodium 100 mg 09/14/24 09:00 09/14/24 08:17 Docusate Sodium 100 Mg Capsule PO 100 mg BID NICCI Administration Enoxaparin Sodium 40 mg 09/13/24 20:00 09/13/24 21:09 Enoxaparin Sodium 40 Mg/0.4 Ml Syringe SUBQ 40 mg Q24H NICCI Administration Promethazine HCl 25 mg/ Sodium 51 mls @ 204 mls/hr 09/13/24 09:11 Chloride IV Q6H PRN Nausea And Vomiting Lactated Ringer's 1,000 mls @ 125 mls/hr 09/13/24 13:00 09/13/24 12:36 Lactated Ringers IV 125 mls/hr .Q8H NICCI Administration Sodium Chloride 250 mls @ 10 mls/hr 09/14/24 07:25 09/14/24 11:25 Sodium Chloride 0.9% 250 Ml IV 10 mls/hr .Q24H PRN Administration LINE CLEARANCE Ibuprofen 800 mg 09/14/24 08:30 09/14/24 11:34 Ibuprofen 400 Mg Tablet PO 800 mg Q8H NICCI Administration Ketorolac Tromethamine 30 mg 09/13/24 09:11 Ketorolac Tromethamine 30 Mg/Ml Vial IVP 09/15/24 09:12 Q6H PRN Pain Ondansetron HCl 4 mg 09/13/24 09:11 Ondansetron Pf 4 Mg/2 Ml Vial IV Q6H PRN Nausea And Vomiting Ondansetron HCl 4 mg 09/13/24 09:11 Ondansetron 4 Mg Rapdis Tablet PO Q6H PRN Nausea And Vomiting Oxycodone HCl 5 mg 09/13/24 09:16 Oxycodone Hcl 5 Mg Tablet PO Q4H PRN Breakthrough Pain Senna 17.2 mg 09/13/24 20:00 Sennosides 8.6 Mg Tablet PO QHS PRN Constipation Simethicone 80 mg 09/13/24 09:11 09/14/24 14:47 Simethicone 80 Mg Tab.Chew PO 80 mg QID PRN Administration Abdominal Distention Respiratory Pulse Oximetry 100 Pulse Oximetry 100 Oxygen Delivery Method Room Air Oxygen Delivery Method Room Air Oxygen Delivery Method Room Air Oxygen Delivery Method Room Air Oxygen Delivery Method Room Air Oxygen Delivery Method Room Air Cardiology Heart Sounds Regular Bowels Bowel Pattern No Bowel Movement Bowel Pattern No Bowel Movement Bowel Pattern No Bowel Movement Renal Bladder Pattern Continent Catheter Urinary Catheter Date of 09/13/24 Insertion [Urethral] Urinary Catheter Time of 07:40 Insertion [Urethral] Date Urinary Catheter Removed 09/13/24 [Urethral] Date Urinary Catheter Removed 09/13/24 [Urethral] Time Urinary Catheter 21:15 Discontinued [Urethral] Time Urinary Catheter 21:15 Discontinued [Urethral]
[2024-09-14 15:09] LABS: Basophils Percent Auto 0.2 % (0.2-2.0); Eosinophils Absolute Auto 0.1 10^3/uL (0.0-0.7); Eosinophils Percent Auto 0.4 % (0.9-7.0); Hematocrit 25.4 % (36.0-48.0); Hemoglobin 8.5 g/dL (12.0-16.0); Immature Granulocytes Abs Auto 0.06 10^3/uL (0.00-0.03); Immature Granulocytes Pct Auto 0.4 % (0.0-0.5); Lymphocytes Absolute Auto 2.4 10^3/uL (1.2-3.8); Lymphocytes Percent Auto 17.5 % (20.5-60.0); Mean Corpuscular HGB Conc 33.5 g/dL (29.9-35.2); Mean Corpuscular Hemoglobin 28.5 pg (26.7-34.0); Mean Corpuscular Volume 85.2 fL (81.0-99.0); Mean Platelet Volume 11.1 fL (9.5-13.5); Monocytes Absolute Auto 1.1 10^3/uL (0.3-0.8); Monocytes Percent Auto 8.1 % (1.7-12.0); Neutrophils Absolute Auto 10.1 10^3/uL (1.4-6.5); Neutrophils Percent Auto 73.4 % (43.0-75.0); Platelet Count 162 10^3/uL (150-450); Red Blood Count 2.98 10^6/uL (4.20-5.40); Red Cell Distribution Width 14.2 % (11.0-15.0); White Blood Count 13.8 10^3/uL (4.0-11.0)
[2024-09-14] MEDS: OXYCODONE HCL 5 MG TABLET PO (15:45)
--- NOTE | 2024-09-14 17:13 | RESP.RT ---
done per nursing
[2024-09-14] MEDS: OXYCODONE HCL/ACETAMINOPHEN 5MG/325MG 2 TAB PO (19:46)
[2024-09-14] MEDS: CYCLOBENZAPRINE HCL 10 MG TABLET PO (19:47)
[2024-09-14] MEDS: ENOXAPARIN SODIUM 40 MG/0.4 ML SYRINGE SUBQ (21:07)
[2024-09-15] MEDS: OXYCODONE HCL/ACETAMINOPHEN 5MG/325MG 2 TAB PO (01:48)
[2024-09-15] MEDS: IBUPROFEN 400 MG TABLET 800 MG PO ×2 (01:48→10:18)
[2024-09-15] MEDS: CYCLOBENZAPRINE HCL 10 MG TABLET PO (06:26)
[2024-09-15 06:41] LABS: Basophils Percent Auto 0.3 % (0.2-2.0); Eosinophils Absolute Auto 0.1 10^3/uL (0.0-0.7); Eosinophils Percent Auto 1.2 % (0.9-7.0); Hematocrit 25.4 % (36.0-48.0); Hemoglobin 8.4 g/dL (12.0-16.0); Immature Granulocytes Abs Auto 0.07 10^3/uL (0.00-0.03); Immature Granulocytes Pct Auto 0.6 % (0.0-0.5); Lymphocytes Absolute Auto 1.9 10^3/uL (1.2-3.8); Lymphocytes Percent Auto 17.1 % (20.5-60.0); Mean Corpuscular HGB Conc 33.1 g/dL (29.9-35.2); Mean Corpuscular Hemoglobin 28.3 pg (26.7-34.0); Mean Corpuscular Volume 85.5 fL (81.0-99.0); Mean Platelet Volume 11.2 fL (9.5-13.5); Monocytes Percent Auto 8.5 % (1.7-12.0); Neutrophils Absolute Auto 8.1 10^3/uL (1.4-6.5); Neutrophils Percent Auto 72.3 % (43.0-75.0); Platelet Count 149 10^3/uL (150-450); Red Blood Count 2.97 10^6/uL (4.20-5.40); Red Cell Distribution Width 14.8 % (11.0-15.0); White Blood Count 11.2 10^3/uL (4.0-11.0)
--- NOTE | 2024-09-15 07:39 | PM.OBPN ---
OB - PN: Subj Subjective Patient comments: no complaints and pain well controlled [place] status: doing well Exam Constitutional Vital Signs, click to edit/add: Last Vital Signs Temp 98.2 F 09/14/24 23:13 Pulse 90 09/14/24 23:13 Resp 15 09/14/24 23:13 BP 111/62 09/14/24 23:13 Pulse Ox 100 09/14/24 11:36 O2 Del Method Room Air 09/14/24 23:15 Documenting provider has reviewed patient's vital signs: yes Common normals: no apparent distress Respiratory Common normals: normal respiratory effort and clear to auscultation bilaterally Cardio Common normals: regular rate and regular rhythm GI Common normals: Normal to inspection, nondistended, normoactive bowel sounds present Extremity Common normals: no clubbing, cyanosis or edema and no calf tenderness Results Labs Labs: Short CBC 09/14/24 09/15/24 Range/Units 15:03 06:23 WBC 13.8 H 11.2 H (4.0-11.0) 10^3/uL Hgb 8.5 L 8.4 L (12.0-16.0) g/dL Hct 25.4 L 25.4 L (36.0-48.0) % Plt Count 162 149 L (150-450) 10^3/uL Urinary Catheter Management Urinary Catheter Management Urethral: Cath placed during this visit: yes, but has since been removed by the nurse Urethral indwelling: No Insertion date: 09/13/24 Insertion time: 07:40 Removal date: 09/13/24 Removal time: 21:15 OB - PN: A/P Plan - day: 2 Plan: routine postop care, discharge home and other (fu 1wk) Time Spent with Patient Time: Total time spent is greater than 50% in coordination of care (as documented) at patient's floor/unit and/or counseling patient: Total time spent with greater than 50% in coordination of care (as documented) at patient's floor/unit and/or counseling patient: less than 15 minutes
[2024-09-15 08:16] VITALS: BP 134/77; PULSE 87
[2024-09-15] MEDS: DOCUSATE SODIUM 100 MG CAPSULE PO (08:17)
== END 2024-09-15 12:50 | disposition home or self-care (01) | DRG 787 ==
PROVIDERS: Admitting Provider Midwife; Visit Provider Obstetrics & Gynecology
PROC: 10D00Z1 Extraction of Products of Conception, Low, Open Approach (ICD-10-PCS; CPT 59514; principal; 2024-09-13 07:30)
DX: O34.211 Maternal care for low transverse scar from previous cesarean delivery (principal); Z3A.39 39 weeks gestation of pregnancy; D62 Acute posthemorrhagic anemia; O90.81 Anemia of the puerperium; Z37.0 Single live birth
CPT/HCPCS: 36415; 36430; 64488; 80307; 85025; 86850; 86900; 86901; 86923; 94667; 94668; J0131; J0665; J0690; J1100; J1650; J1885; J2274; J2371; J2405; J2590; J2765; J3490; P9016

== ENCOUNTER 2024-09-17 09:44 | Outpatient (OUT) | payer BC, SELFPAY | END 2024-09-17 09:45 | disposition home or self-care (01) | LOC: FBCO 10:02 | PROVIDERS: Visit Provider Obstetrics & Gynecology | DX: Z39.1 Encounter for care and examination of lactating mother (principal) ==